=== PATIENT | male | born 1995 | race Caucasian/White ===

== ENCOUNTER 2019-06-17 17:47 | Emergency (ER) | payer OTHER ==
[~2019-06-17] VITALS: Ht 177.8 cm; Wt 102.1 kg
[2019-06-17] MEDS ORDERED: PIOG15TA8 PO (18:00)
[2019-06-17] MEDS ORDERED: CHOL200026 PO (18:00)
--- NOTE | 2019-06-17 20:57 | NUR ---
PT AAOX4. AMBULATORY. C/O FLU-LIKE SX X 3 WEEKS. AWAITING MD FOR EVAL. PLACED ON MONITOR AND PULSE OX. VSS.
--- NOTE | 2019-06-17 21:08 | NUR ---
PER PATIENT "MY SUGAR DROPPED, I DRANK ONE OF THOSE SUGAR DRINKS AND IT CAME UP TO 155." MD AT BEDSIDE.
--- NOTE | 2019-06-17 21:26 | NUR ---
LAW OFFICE MANAGER AT BEDSIDE FOR LABS
[2019-06-17 21:36] LABS: BASOPHILS % (AUTO) 0.6 % (0.0-2.0); EOSINOPHILS % (AUTO) 1.4 % (0.0-6.0); HEMATOCRIT 42 % (39-51); HEMOGLOBIN 14.5 g/dL (13.5-17.5); LYMPHOCYTES # (AUTO) 1.4 /CMM (0.8-4.8); LYMPHOCYTES % (AUTO) 30.5 % (20.0-44.0); MEAN CORPUSCULAR HGB CONC 35 g/dl (31.0-36.0); MEAN CORPUSCULAR VOLUME 89 fL (80-96); MONOCYTES # (AUTO) 0.6 /CMM (0.1-1.30); MONOCYTES % (AUTO) 12.9 % (2.0-12.0); NEUTROPHILS # (AUTO) 2.5 /CMM (1.8-8.9); NEUTROPHILS % (AUTO) 54.6 % (43.0-81.0); PLATELET COUNT (AUTO) 200 /CMM (150-450); RED BLOOD CELL COUNT(AUTO) 4.66 MIL/uL (4.5-6.0); WHITE BLOOD COUNT (AUTO) 4.6 K/uL (4.3-11.0)
[2019-06-17 21:42] LABS: CALCIUM, SERUM 8.8 mg/dL (8.5-10.1); CREATININE 0.6 mg/dL (0.6-1.3); POTASSIUM 3.7 mmol/L (3.5-5.1)
--- NOTE | 2019-06-17 21:45 | NUR ---
RT NOTE NIF TEST PERFORMED PER MD ORDER. PT RESULT IS -68. RESULT RELAYED TO MD HUMPHREY.
[2019-06-17 21:51] LABS: ALBUMIN 3.5 g/dL (3.4-5.0); BILIRUBIN,DIRECT 0.2 mg/dL (0.0-0.2); TOTAL PROTEIN, SERUM 7.4 g/dL (6.4-8.2)
--- NOTE | 2019-06-17 22:59 | NUR ---
IV removed. Catheter intact and site benign. Pressure and 4x4 applied to site. No bleeding noted.
--- NOTE | 2019-06-17 23:02 | NUR ---
Patient discharged to home in stable condition. Written and verbal after care instructions given. Patient verbalizes understanding of instruction and RX. Pt ambulated with steady gait. 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
[2019-06-17 23:03] VITALS: BP 130/78
== END 2019-06-17 23:03 | disposition home or self-care (01) ==
LOC: ER 17:54
DX: J06.9 Acute upper respiratory infection, unspecified (principal); E11.9 Type 2 diabetes mellitus without complications; Z60.2 Problems related to living alone; Z79.899 Other long term (current) drug therapy
CPT/HCPCS: 36415; 71045-TC; 80048-TC; 80076-TC; 82962-TC; 85025-TC